=== PATIENT | male | born 1980 | race Hispanic/Latino ===

== ENCOUNTER 2016-12-23 19:46 | Emergency (ER) | payer OTHER ==
[~2016-12-23] VITALS: Ht 165.1 cm; Wt 82.6 kg
[~2016-12-23 19:46] MED LIST: ZOFRAN4 MG PO
[2016-12-23 20:48] LABS: HEMATOCRIT 42.2 % (38.0-50.0); MCH 27.3 PG (29.0-34.0); MCHC 32.7 G/DL (30.0-36.0); MCV 83.4 FL (86-99); MEAN PLAT.VOLUME 9.4 uM^3 (9.0-12.4); PLATELET COUNT 249 K/uL (156-360); RBC DIS.WIDTH-CV 12.5 % (11.8-14.6); RBC DIS.WIDTH-SD 38.1 % (39-53); RED BLOOD COUNT 5.06 M/uL (4.00-5.50); WHITE BLOOD COUNT 11.7 K/uL (4.1-10.2)
[2016-12-23 20:56] LABS: CHLORIDE 107 mEq/L (99-109); POTASSIUM 4.4 mEq/L (3.7-5.4); SODIUM 142 mEq/L (136-147)
[2016-12-23 20:58] LABS: GLUCOSE 106 mg/dL (70-99)
[2016-12-23 20:59] LABS: ANION GAP 10 MEQ/L (2-14)
[2016-12-23 21:02] LABS: GFR ESTIMATE (CALCULATED) > 59 mL/min/
[2016-12-23 21:03] LABS: UREA NITROGEN (BUN) 17 mg/dL (9-23)
[2016-12-23 21:04] LABS: CREATINE KINASE 543 IU/L (1-294); TOTAL CK 543 IU/L (1-294)
[2016-12-23 21:10] LABS: CK-MB 4.5 ng/mL (0.0-4.9)
[2016-12-23] MEDS ORDERED: PERCOCET 5/31 TABLET PO (23:23)
[2016-12-23 23:48] VITALS: BP 109/69
[2016-12-29] MEDS ORDERED: OXYCODONE-ACET1 EACH PO (15:20)
[2016-12-29] MEDS ORDERED: ZOFRAN4 MG PO (15:20)
[2016-12-29] MEDS ORDERED: OXYCODONE HCL5 M1 PO (15:25)
== END 2016-12-23 23:51 | disposition home or self-care (01) ==
LOC: EME 19:46
PROVIDERS: Emergency Medicine
DX: S92.221A Displaced fracture of lateral cuneiform of right foot, initial encounter for closed fracture (principal); S92.311A Displaced fracture of first metatarsal bone, right foot, initial encounter for closed fracture; W20.8XXA Other cause of strike by thrown, projected or falling object, initial encounter; Y93.9 Activity, unspecified
CPT/HCPCS: 73630; 73700; 80048; 82550; 82553; 85027; 99281; 99285; J2270

== ENCOUNTER 2016-12-31 11:11 | Day surgery (SDC) | payer OTHER ==
[~2016-12-31 11:11] MED LIST changes: +OXYCODONE HCL5 M1 PO; +OXYCODONE-ACET1 EACH PO; +PERCOCET 5/31 TABLET PO
[2016-12-31 11:47] VITALS: BP 114/73
[2016-12-31] MEDS ORDERED: LITE COAT ASPI325 M1 PO ×2 (14:31→14:33)
[2016-12-31] MEDS ORDERED: PERCOCET 5/31 TABLET PO ×2 (14:31→14:33)
[2016-12-31 16:06] VITALS: BP 130/84
[2016-12-31 17:25] VITALS: BP 130/80
[2016-12-31 19:27] VITALS: BP 134/78
[2016-12-31 21:17] VITALS: BP 119/70
== END 2016-12-31 21:43 | disposition home or self-care (01) ==
LOC: SDC 11:11
PROC: 0QSNXZZ Reposition Right Metatarsal, External Approach (ICD-10-PCS; principal; 2016-12-31)
DX: S92.311A Displaced fracture of first metatarsal bone, right foot, initial encounter for closed fracture (principal); W20.8XXA Other cause of strike by thrown, projected or falling object, initial encounter; Y93.9 Activity, unspecified
CPT/HCPCS: 73630; 76000; J0330; J0690; J1100; J1170; J2175; J2250; J2405; J3010